=== PATIENT | male | born 1940 | race Caucasian/White ===

== ENCOUNTER 2022-12-26 12:23 | Emergency (ER) | payer MEDICARE ==
[~2022-12-26] VITALS: Ht 167.6 cm; Wt 63.5 kg
[2022-12-26] MEDS ORDERED: BENZONATATE200 MG PO (14:38)
[2022-12-26] MEDS ORDERED: PROAIR DIGIHAL90 MCG PO (14:38)
[2022-12-26] MEDS ORDERED: DOXYCYCLINE HY100 MG PO (14:38)
== END 2022-12-26 14:43 | disposition home or self-care (01) ==
LOC: ER 12:34
DX: J18.9 Pneumonia, unspecified organism (principal); I10 Essential (primary) hypertension; E11.9 Type 2 diabetes mellitus without complications; G20 Parkinson's disease; Z20.822 Contact with and (suspected) exposure to COVID-19
CPT/HCPCS: 0223U; 36415; 71045; 99283